=== PATIENT | male | born 1970 | race Caucasian/White ===

== ENCOUNTER 2019-07-09 16:53 | Emergency (ER) | payer BC ==
[~2019-07-09] VITALS: Ht 182.9 cm; Wt 108.9 kg
[~2019-07-09 16:53] MED LIST: AMITRIPTYLINE H75 M1 PO; BACLOFEN 10MG T10 M1 PO; BACTRIM DS TAB1 EACH PO; LYRICA200 MG PO; MORPHINE SULFAT15 M3 PO; PERCOCET 5-3251 EACH PO; PRILOSEC 20 MG20 MG
[2019-07-09] MEDS ORDERED: METFORMIN HCL500 M3 PO (17:07)
[2019-07-09] MEDS ORDERED: INSULIN (17:08)
[2019-07-09] MEDS ORDERED: KEFLEX500 M1 PO (18:46)
[2019-07-09 19:15] VITALS: BP 153/87
== END 2019-07-09 19:15 | disposition home or self-care (01) ==
LOC: M.ERS 16:53
DX: S92.411A Displaced fracture of proximal phalanx of right great toe, initial encounter for closed fracture (principal); M79.672 Pain in left foot; E11.40 Type 2 diabetes mellitus with diabetic neuropathy, unspecified; W18.39XA Other fall on same level, initial encounter; Y93.89 Activity, other specified; Y92.89 Other specified places as the place of occurrence of the external cause; Y99.8 Other external cause status

== ENCOUNTER 2020-03-13 22:35 | Emergency (ER) | payer BC ==
[~2020-03-13] VITALS: Ht 165.1 cm; Wt 117.9 kg
[~2020-03-13 22:35] MED LIST changes: +INSULIN; +KEFLEX500 M1 PO; +METFORMIN HCL500 M3 PO
[2020-03-13 23:47] LABS: ABSOLUTE EOSINOPHILS 0.3 thou/uL (0.0-0.7); ABSOLUTE LYMPHOCYTES 2.8 thou/uL (0.8-5.3); ABSOLUTE MONOCYTES 0.8 thou/uL (0.0-1.2); ABSOLUTE NEUTROPHILS 4.3 thou/uL (1.6-8.1); BASOPHILS 0.6 %; EOSINOPHILS 3.1 %; HEMATOCRIT 39.7 % (42.0-52.0); HEMOGLOBIN 14.3 gm/dL (14.0-18.0); LYMPHOCYTES 34.4 %; MCH 31.7 pg (26.0-34.0); MCHC 35.9 g/dL (28.0-37.0); MCV 88.4 fL (80.0-100.0); MONOCYTES 9.7 %; MPV 7.2 fl. (7.2-11.1); NUCLEATED RBCS 0 /100WBC; PLATELET COUNT* 309 thou/uL (150-400); POLYS 52.2 %; RBC 4.49 mil/uL (4.50-6.00); RDW-CV 12.6 % (10.5-14.5); WBC 8.3 thou/uL (4.0-11.0)
[2020-03-13 23:57] LABS: ANION GAP 11 mmol/L (7-16); BUN 7 mg/dL (7-18); CALCIUM 8.5 mg/dL (8.5-10.1); CHLORIDE 101 mmol/L (98-107); CO2 27 mmol/L (21-32); CREATININE 0.9 mg/dL (0.6-1.3); GLUCOSE 209 mg/dL (70-99); POTASSIUM 3.8 mmol/L (3.5-5.1); SODIUM 139 mmol/L (136-145)
[2020-03-13 23:59] LABS: PROTIME 10.7 Seconds (9.20-11.50)
[2020-03-14 00:02] LABS: ALKALINE PHOSPHATASE 80 U/L (46-116); LIPASE 143 U/L (73-393); MAGNESIUM 2.2 mg/dL (1.8-2.4); NT-PRO BRAIN NAT PEPTIDE < 5 pg/mL (<300); SGOT 24 U/L (15-37); SGPT 33 U/L (30-65); TOTAL BILIRUBIN 0.4 mg/dL (<0.1-1.0)
[2020-03-14 00:19] LABS: URINE BILIRUBIN NEGATIVE (Negative); URINE BLOOD NEGATIVE (Negative); URINE CLARITY CLEAR; URINE COLOR STRAW; URINE GLUCOSE-RANDOM NEGATIVE (Negative); URINE KETONES NEGATIVE (Negative); URINE LEUKOCYTES-REFLEX NEGATIVE (Negative); URINE NITRITE-REFLEX NEGATIVE (Negative); URINE PROTEIN NEGATIVE (Negative); URINE SPECIFIC GRAVITY <= 1.005 (1.005-1.030); URINE UROBILINOGEN 0.2 E.U./dl (0.2-1.0)
[2020-03-14 02:48] VITALS: BP 128/72
--- NOTE | 2020-03-14 11:21 | EKG ---
[place] [address] ELECTROCARDIOGRAM REPORT Name: INA AUGUSTE Room: [facility]#: [id number] Admission: 03/13/20 Attend Phys: Discharge: 03/14/20 Date of : 74 Date of Service: 03/13/202237 Report #: [id number] THIS REPORT FOR: //name// [facility] ED Test Date: 2020-03-13 Test Time: 22:38:58 Pat Name: INA AUGUSTE Department: Room: Gender: [employer] Education [employer]: [employer] : 1970 Requested By: Alix Bradley Order Number: [id number] MD: Philip Hodges Measurements Intervals [place] Rate: 114 P: 41 WV: 161 QRS: 16 QRSD: 80 T: 44 QT: 307 QTc: 423 Interpretive Statements Sinus tachycardia poor r wave progression nonspecific st changes No previous ECG available for comparison Electronically Signed On 03-14-2020 11:21:38 CDT by Philip Hodges [email or web address] <ELECTRONICALLY SIGNED> By: Philip Hodges MD, [facility] 03/14/20 1121 37 37 Philip Hodges MD, FACC /EPI
== END 2020-03-14 02:48 | disposition home or self-care (01) ==
LOC: M.ERS 22:35
PROVIDERS: Emergency Medicine
DX: R07.89 Other chest pain (principal); E11.40 Type 2 diabetes mellitus with diabetic neuropathy, unspecified